=== PATIENT | male | born 1995 ===

== ENCOUNTER 2018-07-26 03:40 | Emergency (ER) | payer OTHER ==
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
[2018-07-26] MEDS ORDERED: IOPAMIDOL 76% 75 ML INFUS BTL 75 ML ONE (04:24)
[2018-07-26] MEDS ORDERED: NS(*) 0.9% 50 ML BAG 50 ML ONE (04:26)
[2018-07-26 05:23] LABS: PLATELET COUNT, AUTOMATED 283 K/uL (150-450)
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
--- NOTE | 2018-07-26 05:54 | RADIOLOGY IMAGING REPORT ---
FACILITY: [facility] PATIENT NAME: Joce Lerma : 1995 MR: [id number] V: [id number] EXAM DATE: ORDERING PHYSICIAN: JANET SWAIN TECHNOLOGIST: Location: [facility] [place] Patient: Joce Lerma : 1995 Visit/Account:[id number] Date of Sevice: 07/26/2018 CTA NECK/CAROTIDS W W/O CONTR HISTORY: Choked himself with a belt. Evaluate for vascular injury. COMPARISON: None. TECHNIQUE: Overlapping thin sections were obtained during a bolus of IV contrast from the aortic arch through the [place] of [place]. Reconstruction of the source data set includes multiplanar 2D in the s agittal and coronal planes, and 3D coronal thin slab MIP series. Digital Associate Media Director images have been stor ed on PACS. Stenosis of the internal carotid arteries are calculated using NASCET criteria. One of the following dose optimization techniques was utilized in the performance of this exam: Autom ated exposure control; adjustment of the mA and/or kV according to the patient's size; or use of an i terative reconstruction technique. Specific details can be referenced in the facility's radiology CT exam operational policy. CONTRAST: 75 mL of IV Isovue-370. FINDINGS: Aortic arch and great vessels: Normal. Right CCA / ICA / ECA: Normal. Left CCA / ICA / ECA: Normal. Vertebral arteries: Normal. The left vertebral artery is dominant. [place] of [place]: Normal. Soft tissues: Normal. Musculoskeletal: There is mild wedging of C6-T1 that may be physiologic or due to prior injury. Preve rtebral soft tissues are within normal limits. Spinal canal is normal in caliber. Upper chest: Clear. IMPRESSION: 1. Normal CTA of the neck. Report Dictated By: Sabina Holland at 07/26/2018 5:41 AM Report E-Signed By: Sabina Holland at 07/26/2018 5:49 AM WSN:[id number]
[2018-07-26 06:00] VITALS: BP 128/98
== END 2018-07-26 06:46 ==
LOC: ER 06:29
DX: T14.91XA Suicide attempt, initial encounter (principal); F10.120 Alcohol abuse with intoxication, uncomplicated; Y90.3 Blood alcohol level of 60-79 mg/100 ml
CPT/HCPCS: 70498; 80305; 80320; 80329; 81001; 83735; 84443; 85025; 99284; J7050; Q9967; 82040; 82247; 82310; 82374; 82435; 82565; 82947; 84075; 84132; 84155; 84295; 84450; 84460; 84520

== ENCOUNTER 2018-07-26 06:24 | Inpatient (IN) | payer OTHER ==
[~2018-07-26] VITALS: Ht 172.7 cm; Wt 70.3 kg
[2018-07-26 07:05] VITALS: BP 122/70
[2018-07-26] MEDS ORDERED: LORazepam 2 MG/ML VIAL IM PRN (08:05)
[2018-07-26] MEDS ORDERED: diphenhydrAMINE 25 MG CAP PO PRN (08:05)
[2018-07-26] MEDS ORDERED: diphenhydrAMINE 50 MG/ML VIAL IM PRN (08:05)
[2018-07-26] MEDS ORDERED: LORazepam 1 MG TAB PO PRN ×2 (08:05→12:10)
[2018-07-26] MEDS ORDERED: WATER STERILE 10 ML VIAL IM ONLY PRN (08:10)
[2018-07-26] MEDS ORDERED: OLANZapine 10 MG VIAL IM ONLY PRN (08:10)
[2018-07-26] MEDS ORDERED: OLANZapine 5 MG TAB PO PRN (08:10)
[2018-07-26] MEDS: MULTIVITAMINS TAB PO SCH (09:00)
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
[2018-07-26] MEDS ORDERED: NICOTINE CARTRIDGE 1 EA PO PRN (16:35)
[2018-07-26] MEDS: NICOTINE INH SYSTEM 10 MG/INH INH PRN ×2 (17:15→19:48)
[2018-07-27] MEDS: MULTIVITAMINS TAB PO SCH (08:38)
[2018-07-27 10:25] VITALS: BP 113/71
--- NOTE | 2018-07-27 12:06 | BHS Progress Note ---
[facility] - Subjective Progress Notes Subjective "I'm feeling better." Rates depression as low. Anxiety 2 or 3, anger 0, Guilt 6 or 7. He denies suicidal thoughts. Suicidal Ideation: None Homicidal Ideation: None [facility] - Objective Physical Exam Vital Signs Vital Signs 07/27/18 10:25 Temp 99.1 Pulse 65 Resp 16 B/P (MAP) 113/71 (85) Pulse Ox 94 O2 Delivery Room Air Muscle Strength and Tone: WNL Gait and Station: Steady Allergies Reviewed: Yes Mental Status Exam General Appearance: Casual, Well Groomed, Good Eye Contact, Cooperative, Polite, Good Interaction; No Tearful, No Psychomotor Agitation, No Psychomotor Retardation, No Bizarre Mannerisms, No Tics Speech: Clear, Spontaneous, Normal Rate, Normal Rhythm, Normal Volume, Normal Tone Mood: Dysthmic/Depressed Affect: Calm, Neutral, Anxious Thought Process: Organized, Logical, Goal Directed; No Loose Associations, No Flight of Ideas Thought Content: No Suicidal Ideation, No Homicidal Ideation, No Delusions, No Auditory Halllucinations, No Visual Hallucinations, No Thought Broadcasting, No Ideas of Reference, No Obsessions, No Compulsions Sensorium: Clear Cognition: Alert & Oriented-Person, Alert & Oriented-Place, Alert & Oriented- Time, Dldve-Dmwevrcu-Uxhbtufju Memory: Immediate, Recent, Remote (grosssly intact) Intelligence: Average Insight Judgment: Appropriate [facility] Assessment and Plan Agkp-di-Dina Encounter Date: Jul 27, 2018 Rqbh-[id number] Encounter Time: 08:30 [facility] Plan: Admit to Unit, Necessary Precautions, Individual/Group Therapy, Admin/Titrate Meds, Educate Patient Tobacco Medications: Not Appropriate Condition Multpiple Antipsychotics Used: No Problems: (1) Adjustment disorder Status: Chronic (2) Suicidal behavior with attempted self-injury Status: Resolved Problem Qualifiers (1) Adjustment disorder: Adjustment disorder type: with mixed anxiety and depressed mood Qualified Codes: F43.23 - Adjustment disorder with mixed anxiety and depressed mood WHITNEY HANDLEY NP Jul 27, 2018 12:06
[2018-07-27] MEDS: NICOTINE INH SYSTEM 10 MG/INH INH PRN ×3 (12:30→21:53)
[2018-07-27 19:25] VITALS: BP 118/65
[2018-07-28 05:55] VITALS: BP 109/65
[2018-07-28] MEDS: MULTIVITAMINS TAB PO SCH (08:30)
[2018-07-28 08:35] VITALS: BP 121/74
[2018-07-28] MEDS ORDERED: NIC10R INH (09:20)
[2018-07-28] MEDS ORDERED: MULT-859 PO (09:20)
--- NOTE | 2018-07-29 10:26 | SCHAAF DISCHARGE ---
DATE OF ADMISSION: July 26, 2018 DATE OF DISCHARGE: July 28, 2018 ATTENDING PHYSICIAN Santos Moore MD The patient was seen at approximately 0900 hours on 07/28/2018 for a note concerning this dictation. FINAL DIAGNOSES 1. Adjustment disorder with depressed mood. 2. Alcohol intoxication, resolved. 3. Social stressors, ongoing. 4. Patient having supportive relationship with mother. REASON FOR ADMISSION This is a very pleasant 22-year-old male who was admitted under an emergency detainment after making suicidal threats and the presence of alcohol intoxication. Patient had been arguing with his girlfriend. Patient also in somewhat of a conflict with his long-term girlfriend's father, who does not approve of their relationship. Please see history and physical for further details. Patient was admitted without incident, very calm, cooperative, polite, took an active role in his treatment on the unit. Patient adamantly denying any suicidal intent or any other psychiatric concerns in the absence of alcohol of intoxication. Again, patient took an active role in his treatment, was noted to be very pleasant and cooperative throughout his stay. Patient's mother was contacted, who lives in [place], and had no reservations about patient's discharge, and no parasuicidal behaviors were seen on the unit, and no clinically relevant alcohol withdrawal was seen on the unit as well, and patient was discharged to home. PHYSICAL EXAMINATION Please see emergency room note, notable for 22-year-old healthy appearing male in no acute medical distress. Vital signs at the time of admission: Temperature 98.5, pulse 80, respiratory rate 16, blood pressure 122/70 and pulse oximetry 93% on room air. Vital signs at the time of discharge from Behavioral Health Unit: Temperature 98.7, pulse low at 56, respiratory rate 16, blood pressure 121/74 and pulse oximetry 97% on room air. LABORATORY DATA TSH noted to be 4.17 in normal range. CBC was unremarkable. CMP notable for AST elevated at 160 and ALT elevated at 139. Urinalysis overall unremarkable as well, and toxicology screen negative for substances of abuse with a serum alcohol at 67 upon admission. MENTAL STATUS EXAMINATION GENERAL APPEARANCE, BEHAVIOR AND ATTITUDE: At time of discharge, this is a polite, cooperative 22-year-old male interacting very well with this provider and other treatment team staff. Patient making good eye contact, nontearful. No psychomotor agitation or retardation. No bizarre mannerisms or tics. SPEECH: Within normal limits. Regular rate, rhythm, volume and tone. MOOD: Described as good. AFFECT: Full and bright. THOUGHT PROCESSES: Logical and goal-directed. No loose associations or flight of ideas. THOUGHT CONTENT: Free of auditory or visual hallucinations, ideas of reference, thought broadcastings, delusions, obsessions, or compulsions, and patient adamantly denying any suicidal or homicidal ideation. SENSORIUM: Clear. COGNITION: Alert and oriented to person, place, time and situation. MEMORY: Immediate, recent and remote was estimated intact. INTELLIGENCE: Average, based on interview. INSIGHT AND JUDGMENT: Considered grossly intact in the absence of illicit substance or alcohol, and appropriate for outpatient treatment. RESULTS OF TESTING Imaging: None. Laboratory data: See above. CONSULTATIONS None. TREATMENT Patient received no medications on the Behavioral Health Unit. Patient took a very active role in individual and group therapy. HOSPITAL COURSE Patient remained pleasant and cooperative throughout his stay, again taking an active role in his treatment. Patient was notably not having any clinically relevant alcohol withdrawal. Patient's mood improved. Contact with mother was made. Relationship was estimated to be very intact and supportive. CONDITION OF PATIENT ON DISCHARGE Stable. Considered a minimal risk to himself or others, and appropriate for ongoing outpatient care. DISPOSITION The patient was discharged to home. He would follow up with a primary care provider in one month for elevated hepatic enzymes. Patient would abstain from alcohol and acetaminophen containing products and any other illicit substances. He was given the crisis line should symptoms return. Patient will take multivitamin with minerals daily and encouraged to stop smoking and use [id number] nicotine replacement. The risks, benefits and alternatives of the above discharge plan were discussed. Informed consent was given to proceed with the above discharge plan by this competent patient and patient's mother at time of discharge. MAN
== END 2018-07-28 14:11 | disposition home or self-care (01) | DRG 881 ==
LOC: BHS 06:24
PROVIDERS: ADMIT Registered Nurse Psychiatric/Mental Health, Adult; ATTEND Registered Nurse Psychiatric/Mental Health, Adult
DX: F43.21 Adjustment disorder with depressed mood (principal); R45.851 Suicidal ideations; F10.920 Alcohol use, unspecified with intoxication, uncomplicated; X83.8XXA Intentional self-harm by other specified means, initial encounter; Z63.0 Problems in relationship with spouse or partner; Z63.1 Problems in relationship with in-laws

== ENCOUNTER 2018-11-23 04:00 | Emergency (ER) | payer OTHER ==
[~2018-11-23 04:00] MED LIST: MULT-859 PO; NIC10R INH
--- NOTE | 2018-11-23 04:05 | ER Report ---
History and Physical Time Seen By MD: 04:05 Hx. of Stated Complaint: prison clearance HPI/ROS CHIEF COMPLAINT: emergency retirement, suicidal statements HISTORY OF PRESENT ILLNESS: This is a 22 year old male. He was arguing with his girlfriend, overheard by the [place] Police officers who were called to the domestic dispute. Verbal arguing, no physical violence. Police overheard him say that he was likely to kill himself or shoot himself at some point before he turns 26. He says that he feels that they misunderstood what he said in the middle of an argument. He has had a few drinks tonight. Denies drug use. Uses nicotine vaping. No medical problems. Past suicide attempt by attempted self strangulation with a belt, denied suicidal ideation at that time. Was in behavioral health at that time and then did counseling through the [facility] after that. Not currently in counseling or taking any medications. Denies suicidal ideation at this time. Allergies: Coded Allergies: Penicillins (Verified Allergy, Unknown, 11/23/18) Home Meds Reported Medications Nicotine (NICOTROL) 10 Mg/Inh Ctr, 10 MG INH PRN PRN for NICOTINE REPLACEMENT 07/28/18 Multivits,Ca,Minerals/Iron/Fa (THERA-M TABLET) 1 Each Tablet, 1 EACH PO DAILY 07/28/18 Reviewed Nurses Notes: Yes Hx Substance Use Disorder: No Hx Alcohol Use: Yes (1-2 time/month) Constitutional Vital Sign - Last 24 Hours 11/23/18 04:01 Temp 98.7 Pulse 98 Resp 12 B/P (MAP) 139/101 Pulse Ox 93 O2 Delivery Room Air Physical Exam General Appearance: Alert, no acute distress, cooperative. Eyes: Pupils equal and round, mild injection. ENT: Normal oral mucosa. Moist mucous membranes. Respiratory: Lungs are clear to auscultation. Cardiac: regular rate and rhythm, no murmurs, normal peripheral perfusion. Musculoskeletal: Extremities have full range of motion. Skin: No rashes or lesions. Neuro: Alert and oriented x3. No focal deficits. DIFFERENTIAL DIAGNOSIS: After history and physical exam differential diagnosis was considered for emergency retirement for suicidal statements. Medical Decision Making Data Points Result Diagram: 11/23/18 0459 11/23/18 0459 Laboratory Hematology Test 11/23/18 04:49 11/23/18 04:59 Urine Color Straw Urine Clarity Clear Urine pH 5.0 pH (4.8-9.5) Urine Specific [place] 1.009 Urine Protein Negative mg/dL (NEGATIVE) Urine Glucose (UA) Negative mg/dL (NEGATIVE) Urine Ketones Negative mg/dL (NEGATIVE) Urine Blood Negative (NEGATIVE) Urine Nitrite Negative (NEGATIVE) Urine Bilirubin Negative (NEGATIVE) Urine Urobilinogen Negative mg/dL (0.2-1.9) Urine Leukocyte Esterase Negative (NEGATIVE) Urine RBC 1 /HPF (0-2/HPF) Urine WBC <1 /HPF (0-5/HPF) Urine Squamous Epithelial Cells None /LPF (</=FEW) Urine Bacteria Negative /HPF (NONE-FEW) Urine Hyaline Casts Few /LPF (NONE-FEW) Urine Mucus None /HPF (NONE-FEW) Urine Opiates Screen Negative Urine Barbiturates Screen Negative Ur Tricyclic Antidepressants Screen Negative Urine Phencyclidine Screen Negative Urine Amphetamines Screen Negative Urine Benzodiazepines Screen Negative Urine Cocaine Screen Negative Urine Cannabinoids Screen Negative Red Blood Count 5.16 M/uL (4.00-5.60) Mean Corpuscular Volume 88.5 fL (80.0-96.0) Mean Corpuscular Hemoglobin 30.5 pg (26.0-33.0) Mean Corpuscular Hemoglobin Concent 34.5 g/dL (32.0-36.0) Red Cell Distribution Width 13.5 % (11.5-14.5) Mean Platelet Volume 7.1 fL (7.2-11.1) Neutrophils (%) (Auto) 58.1 % (39.4-72.5) Lymphocytes (%) (Auto) 33.2 % (17.6-49.6) Monocytes (%) (Auto) 6.9 % (4.1-12.4) Eosinophils (%) (Auto) 1.2 % (0.4-6.7) Basophils (%) (Auto) 0.6 % (0.3-1.4) Nucleated RBC Relative Count (auto) 0.1 /100WBC Neutrophils # (Auto) 3.4 K/uL (2.0-7.4) Lymphocytes # (Auto) 1.9 K/uL (1.3-3.6) Monocytes # (Auto) 0.4 K/uL (0.3-1.0) Eosinophils # (Auto) 0.1 K/uL (0.0-0.5) Basophils # (Auto) 0.0 K/uL (0.0-0.1) Nucleated RBC Absolute Count (auto) 0.01 K/uL Sodium Level 141 mmol/L (137-145) Potassium Level 4.0 mmol/L (3.5-5.0) Chloride Level 107 mmol/L (98-107) Carbon Dioxide Level 18 mmol/L (22-30) Blood Urea Nitrogen 14 mg/dl (9-21) Creatinine 0.90 mg/dl (0.66-1.25) Glomerular Filtration Rate Calc > 60.0 Random Glucose 96 mg/dl (75-110) Calcium Level 9.9 mg/dl (8.4-10.2) Magnesium Level 2.0 mg/dl (1.7-2.2) Total Bilirubin 0.2 mg/dl (0.2-1.3) Aspartate Amino Transf (AST/SGOT) 28 U/L (0-35) Alanine Aminotransferase (ALT/SGPT) 40 U/L (0-56) Alkaline Phosphatase 77 U/L (0-126) Total Protein 8.1 g/dl (6.3-8.2) Albumin 5.1 g/dl (3.5-5.0) Salicylates Level < 10 mg/L Salicylate Last Dose Date unk Acetaminophen Level < 10 ug/ml Serum Alcohol 136 mg/dl Chemistry Test 11/23/18 04:49 11/23/18 04:59 Urine Color Straw Urine Clarity Clear Urine pH 5.0 pH (4.8-9.5) Urine Specific [place] 1.009 Urine Protein Negative mg/dL (NEGATIVE) Urine Glucose (UA) Negative mg/dL (NEGATIVE) Urine Ketones Negative mg/dL (NEGATIVE) Urine Blood Negative (NEGATIVE) Urine Nitrite Negative (NEGATIVE) Urine Bilirubin Negative (NEGATIVE) Urine Urobilinogen Negative mg/dL (0.2-1.9) Urine Leukocyte Esterase Negative (NEGATIVE) Urine RBC 1 /HPF (0-2/HPF) Urine WBC <1 /HPF (0-5/HPF) Urine Squamous Epithelial Cells None /LPF (</=FEW) Urine Bacteria Negative /HPF (NONE-FEW) Urine Hyaline Casts Few /LPF (NONE-FEW) Urine Mucus None /HPF (NONE-FEW) Urine Opiates Screen Negative Urine Barbiturates Screen Negative Ur Tricyclic Antidepressants Screen Negative Urine Phencyclidine Screen Negative Urine Amphetamines Screen Negative Urine Benzodiazepines Screen Negative Urine Cocaine Screen Negative Urine Cannabinoids Screen Negative White Blood Count 5.8 k/uL (4.5-11.0) Red Blood Count 5.16 M/uL (4.00-5.60) Hemoglobin 15.8 g/dL (14.0-18.0) Hematocrit 45.7 % (42.0-52.0) Mean Corpuscular Volume 88.5 fL (80.0-96.0) Mean Corpuscular Hemoglobin 30.5 pg (26.0-33.0) Mean Corpuscular Hemoglobin Concent 34.5 g/dL (32.0-36.0) Red Cell Distribution Width 13.5 % (11.5-14.5) Platelet Count 324 K/uL (150-450) Mean Platelet Volume 7.1 fL (7.2-11.1) Neutrophils (%) (Auto) 58.1 % (39.4-72.5) Lymphocytes (%) (Auto) 33.2 % (17.6-49.6) Monocytes (%) (Auto) 6.9 % (4.1-12.4) Eosinophils (%) (Auto) 1.2 % (0.4-6.7) Basophils (%) (Auto) 0.6 % (0.3-1.4) Nucleated RBC Relative Count (auto) 0.1 /100WBC Neutrophils # (Auto) 3.4 K/uL (2.0-7.4) Lymphocytes # (Auto) 1.9 K/uL (1.3-3.6) Monocytes # (Auto) 0.4 K/uL (0.3-1.0) Eosinophils # (Auto) 0.1 K/uL (0.0-0.5) Basophils # (Auto) 0.0 K/uL (0.0-0.1) Nucleated RBC Absolute Count (auto) 0.01 K/uL Glomerular Filtration Rate Calc > 60.0 Calcium Level 9.9 mg/dl (8.4-10.2) Magnesium Level 2.0 mg/dl (1.7-2.2) Total Bilirubin 0.2 mg/dl (0.2-1.3) Aspartate Amino Transf (AST/SGOT) 28 U/L (0-35) Alanine Aminotransferase (ALT/SGPT) 40 U/L (0-56) Alkaline Phosphatase 77 U/L (0-126) Total Protein 8.1 g/dl (6.3-8.2) Albumin 5.1 g/dl (3.5-5.0) Salicylates Level < 10 mg/L Salicylate Last Dose Date unk Acetaminophen Level < 10 ug/ml Serum Alcohol 136 mg/dl Toxicology Test 11/23/18 04:49 11/23/18 04:59 Urine Opiates Screen Negative Urine Barbiturates Screen Negative Ur Tricyclic Antidepressants Screen Negative Urine Phencyclidine Screen Negative Urine Amphetamines Screen Negative Urine Benzodiazepines Screen Negative Urine Cocaine Screen Negative Urine Cannabinoids Screen Negative Salicylates Level < 10 mg/L Salicylate Last Dose Date unk Acetaminophen Level < 10 ug/ml Serum Alcohol 136 mg/dl Urinalysis Test 11/23/18 04:49 Urine Color Straw Urine Clarity Clear Urine pH 5.0 pH (4.8-9.5) Urine Specific [place] 1.009 Urine Protein Negative mg/dL (NEGATIVE) Urine Glucose (UA) Negative mg/dL (NEGATIVE) Urine Ketones Negative mg/dL (NEGATIVE) Urine Blood Negative (NEGATIVE) Urine Nitrite Negative (NEGATIVE) Urine Bilirubin Negative (NEGATIVE) Urine Urobilinogen Negative mg/dL (0.2-1.9) Urine Leukocyte Esterase Negative (NEGATIVE) Urine RBC 1 /HPF (0-2/HPF) Urine WBC <1 /HPF (0-5/HPF) Urine Squamous Epithelial Cells None /LPF (</=FEW) Urine Bacteria Negative /HPF (NONE-FEW) Urine Hyaline Casts Few /LPF (NONE-FEW) Urine Mucus None /HPF (NONE-FEW) ED Course/Re-evaluation ED Course Discussed the information available with the patient. He is denying suicidal ideation at this time, but is intoxicated. Based on prior history and report from the police, I felt he represented a moderate risk and decided to uphold the retirement. Behavioral health will do an evaluation and will likely need to hold him for at least 48 hours for further evaluation to decide what is needed in this case. Called and discussed the case with Eladia Cabral, who accepted the patient to behavioral health. Decision to Disposition Date: Nov 23, 2018 Decision to Disposition Time: 05:51 Depart Departure Latest Vital Signs Vital Signs Date Time Temp Pulse Resp B/P (MAP) Pulse Ox O2 Delivery O2 Flow Rate FiO2 11/23/18 04:01 98.7 98 12 139/101 93 Room Air Impression: Primary Impression: History of suicide attempt Additional Impression: Suicidal ideation Condition: Condition Unchanged Disposition: XFER TO [facility] Problem Qualifiers JANET SWAIN MD Nov 23, 2018 04:05
--- NOTE | 2018-11-23 04:38 | BHS - Psychiatric Evaluation ---
ER - Title 25 MHE Evaluation Title 25 Evaluation Patient Detained By: Law Enforcement Referral Source: Patient, [place] [employer] Date Patient Detained: Nov 23, 2018 Time Patient Detained: 04:08 Date Mcfp Expires: Nov 26, 2018 Time Mcfp Expires: 23:59 Legal Status: Police Hold: No Legal Status: Residence: Student Assessment Data Provided By: Patient, Law Enforcement HPI/ROS: This is a 22 year old male. Police responded to a domestic argument. He has been drinking. Police overheard suicidal statements which led to starting the emergency nursing home process. He denies being suicidal at this time. He does have a past history of suicide attempt with attempted self strangulation, and denied being suicidal even with obvious attempt at that time. He did stay in at that time and then did counseling through the [facility] after that. No current counseling or medications. Admit due to SI or Attempt: No Suicide Plan: No Plan Alcohol or Drugs Involved: Yes Is Patient Info Reliable: Yes Is Collateral Info Reliable: Yes Mental Status Exam General Appearance: Good Eye Contact, Cooperative, Polite, Good Interaction Speech: Clear, Spontaneous, Normal Rate, Normal Rhythm, Normal Volume, Normal Tone Mood: Euthymic Affect: Full and Appropriate, Calm Thought Process: Organized, Logical Thought Content: No Suicidal Ideation, No Homicidal Ideation Sensorium: Other (Is mildly intoxicated at this time.) Cognition: Alert & Oriented-Person, Alert & Oriented-Place, Alert & Oriented- Time, Meail-Eyttavqp-Gwmlnvrjf Insight Judgment: Intact, Appropriate Current Risk & History Current Dangerous Risk Assessm: Current Suicide Ideation Past Dangerous Risk Assessm: Other (See history above.) Previous Suicide Attempt: Past - High Lethality Previous Psychiatric Illness: Yes Previous Psychiatric Treatment: Yes Risk Assessment & Disposition Evaluated Risk Assessment: Given past history of suicide attempt and given the difference between what he is telling me and what officers heard, he represents a moderate risk and I would like to have behavioral health assess further. Impression: Primary Impression: History of suicide attempt Additional Impression: Suicidal ideation Meets Mental Illness Req.: Yes Meets Dangerousness Req.: Yes Emergency Mcfp to be: Upheld Decision Comment: Will hold here in the ER at this time, discuss with behavioral health and plan on admission for further evaluation based on above. Date of Decision: Nov 23, 2018 Time of Decision: 05:51 Patient is Medically Stable at: Yes Disposition: [facility] Problem Qualifiers JANET SWAIN MD Nov 23, 2018 04:38
[2018-11-23 05:15] LABS: PLATELET COUNT, AUTOMATED 324 K/uL (150-450)
[2018-11-23 07:45] VITALS: BP 127/78
== END 2018-11-23 08:30 ==
LOC: ER 04:05
DX: R45.851 Suicidal ideations (principal); Z91.5 Personal history of self-harm; F10.120 Alcohol abuse with intoxication, uncomplicated; Y90.6 Blood alcohol level of 120-199 mg/100 ml
CPT/HCPCS: 80305; 80320; 80329; 81001; 82040; 82247; 82310; 82374; 82435; 82565; 82947; 83735; 84075; 84132; 84155; 84295; 84443; 84450; 84460; 84520; 85025; 99284

== ENCOUNTER 2018-11-23 07:56 | Inpatient (IN) | payer OTHER ==
[~2018-11-23] VITALS: Ht 172.7 cm; Wt 77.1 kg
[2018-11-23 08:15] VITALS: BP 128/70
[2018-11-23] MEDS ORDERED: MAG HYD/AL HYD/SIMETH 30ML UDC PO PRN (08:25)
[2018-11-23] MEDS ORDERED: ACETAMINOPHEN 325 MG TAB PO PRN (08:25)
[2018-11-23] MEDS: MULTIVITAMINS PO SCH (08:41)
[2018-11-23] MEDS ORDERED: NICOTINE CARTRIDGE 1 EA PO PRN (11:40)
[2018-11-23] MEDS: NICOTINE INH SYSTEM 10 MG/INH INH PRN (13:34)
[2018-11-23 19:35] VITALS: BP 120/73
--- NOTE | 2018-11-23 20:13 | BHS - Psychiatric Evaluation ---
Title 25 Evaluation Hearing Report: 109 Date of Report: Nov 23, 2018 Examiner: Radha López M.S., L.P.C. Patient Detained By: Physician (ER physician, Dr. Segura upheld), Law Enforcement (LE intiated) 24hr Mental Health Eval By: ER physician, Dr. Segura Date Patient Detained: Nov 23, 2018 Time Patient Detained: 05:00 Date Long Term Expires: Nov 26, 2018 Time Long Term Expires: 05:00 Legal Status: Police Hold: No Legal Status: Relationship: Single Legal Status: Residence: Student Referral Source: Professional: LE Assessment Data Provided By: Patient, Law Enforcement (), Other Source ([facility] Professionals and patient's Electronic Medical Record (EMR)) Chief Complaint: Patient is brought to the ER by LE who were called because patient was overheard by concerned citizen patient in a loud argument expressing suicidal ideation. Patient denies he expressed suicidal ideation in this loud argument. HPI/ROS: from ER physician, Dr. Segura, "This is a 22 year old male. Police responded to a domestic argument. He has been drinking. Police overheard suicidal statements which led to starting the emergency mcfp process. He denies being suicidal at this time. He does have a past history of suicide attempt with attempted self strangulation, and denied being suicidal even with obvious attempt at that time. He did stay in at that time and then did counseling through the [facility] after that. No current counseling or medications. " Diagnosis: Adjustment Disorder with Depression, Anxiety and Suicide Attempt in July 2018 Risk Formulation: Risk is high, especially because patient was just detained three months ago because he soco to a similar level of concern with suicidal thoughts and behaviors. Recommendations of [facility] Team: The patient "evidences a substantial probability of physical harm to self as manifested by evidence of recent threats of/or attempts at suicide or serious bodily harm" as evidenced by: Recent suicidal ideation and behavior that has not resolved with outpatient support. Up to 10 days of continued stay at the safe and stabilizing environment of [facility] is the recommendation of the Team or a stipulated agreement that patient continue his outpatient therapeutic engagement that he recently let lapse. 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 Reliability of Collateral Info , very reliable Current Dangerous Risk Assess: Current Suicide Ideation (Denies current ideation, says he was suicidal in Deember when he was detained) Current Risk Summary: Risk is moderate, especially because patient was just detained three months ago because he soco to a similar level of concern with suicidal thoughts and behaviors. Past Dangerous Risk Assess: Suicide Ideation-last 6mo [facility] - Exam Physical Exam Vital Signs Vital Signs 11/23/18 11/23/18 08:15 19:35 Temp 99.5 Pulse 56 Resp 16 B/P (MAP) 120/73 (89) Pulse Ox 95 O2 Delivery Room Air Mental Status Exam General Appearance: Casual, Well Groomed, Good Eye Contact, Cooperative, Polite, Good Interaction Speech: Clear, Spontaneous, Normal Rate, Normal Volume, Normal Tone Mood: Dysthmic/Depressed Affect: Anxious Thought Process: Organized, Goal Directed (Wants to go back to school.) Memory: Immediate, Recent, Remote Intelligence: Average Insight Judgment: Poor (Especially because patient was intoxicated on both occasions that he was detained.) Sleep: Normal Care & Behavior on Unit Treatment Team Participation: Patient is cooperative and engages in treatment appropriately. Title 25 History Psychiatric History: Client denies any mental health history before a mcfp and hospitalization in July 2018. He never has taken any psychiatric medications. He denies a history of self-harm. From 3 months ago, written by Poppy Cabral, psychiatric professional at [facility], "This is a 22-year-old male admitted to the unit on an emergency mcfp after [employer] was called due to apparent suicide attempt. Patient is seen with the team. He is pleasant and cooperative. He acknowledges that he was drinking on the evening in question, that he drank more than he generally does and that he impulsively put a belt around his throat. He reports that he stopped this on his own accord. He now says he had no intention of killing himself. He reports that this was uncharacteristic for him and that he has never done anything like this before. He denies that he is having any suicidal thoughts currently. He denies that he has any history of suicide attempt in the past. As mentioned, he was intoxicated at the time. He becomes tearful as he continues to talk about current stressors which include it being the end of the semester and him finishing up his school work for the year. Finances are running low. There is a very poor relationship with the father of patient's girlfriend, who made derogatory racial statements about the patient, and this is very hurtful to the patient and one of his major stressors. He reports that here in the past two weeks, sleep has been generally pretty good." Family Psychiatric Hx: Denies any significant psychiatric family history. Social History: From 3 months ago, written by Poppy Cabral, psychiatric professional at [facility], "He was born and raised in [place], [place]. He was raised primarily by his mother. He never really had a relationship with his biologic father, who is in [place]. He has two younger siblings, a brother and a sister. He graduated from [employer] where he played basketball. He has always been a good student. He came to the [employer] on a [employer] scholarship. 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 He says that his grades are very well. He currently lives alone, and he has a dog. He does have a girlfriend whom he has been with for four years. He says that they generally do have a good relationship; however, her father does not approve of the relationship." Previous Detentions: Detained in July 2018 and hospitalized at [facility] on that occasion. Trauma/Abuse History: Denies a history of trauma. Drug & Alcohol Use: Uses alcohol occasionally. Drinks about 4-5 drinks at a time he says. He says he has tried marijuana, but says he has not used with regularity since high school. Uses tobacco. Current Living Situation: Lives alone with a dog. Employment Issues: Patient is a student at . Financial Issues: In July, reported problematic finances. Patient Strengths: Bright, motivated in school cares about his significant relationships. Relevant Medications: None RADHA CASTANON LPC Nov 23, 2018 19:52
--- NOTE | 2018-11-24 01:42 | HISTORY AND PHYSICAL ---
DATE OF ADMISSION: November 23, 2018 TIME OF ADMISSION: Approximately 0800. DATE/TIME SEEN Patient is seen on 11/23/2018 at 1110. ATTENDING PRACTITIONER Poppy Cabral, Psychiatric Nurse Practitioner PRESENTING PROBLEM/CHIEF COMPLAINT "The police say that I made suicidal statements, but I was not feeling suicidal at all." HISTORY OF PRESENT ILLNESS This is a 22-year-old male admitted to the unit on an emergency halfway after he was emergency detained by the [place] [employer]. What is reported is that patient was out with his friends last evening, including his girlfriend, drinking at the bars. He does report that he did get a little upset after running into a male friend. He [facility], and they were having a verbal argument. At some point, it is believed that a neighbor called the police, and police responded. According to the ER record, police overheard him make a suicidal statement. Patient is firmly denying any suicidal thoughts today, and he firmly denies that he made a suicidal statement early this morning. He denies owning a gun, and it is reported that he made a statement about shooting himself with a gun. Patient is polite and cooperative this morning during the interview. He is known to this caption writer from a previous admission in July 2018, at which time he was admitted following a suicide attempt while intoxicated. Patient does admit that he was drinking last evening. He reports drinking approximately four drinks. He reports that since his discharge from the unit on July 28, he followed up with a therapist at [facility] named Ashleigh; he is not sure of the last name. He says that he saw her for about four to five sessions. He feels that he had been doing much better. He feels that he has been doing well in school this semester, that his relationship with his mother has improved and that he speaks to her every day. He says that his relationship with his girlfriend has been good since his last admission. He denies problems with mood. He denies any major problems with sleep at night. He reports that anxiety level has been running maybe a 3 or 4. Today it is higher. Today he rates his anxiety level as an 8, as he is frustrated, as he does not believe that he needs to be in the hospital at this time. He denies any changes to medications. He is not taking any medications currently. He denies any other major changes since his admission in July, such as changes to his medical health. He has not started any supplements. MENTAL HEALTH HISTORY Patient was hospitalized here at [facility] July 26 through July 28, 2018, following a suicide attempt at which time he took a belt and put it around his neck, making suicidal statements. He was detained at that time, and he was discharged with recommendations to follow up with the student affairs dean, which he did, and with outpatient therapy. In terms of past mental health treatment, he did follow up with [facility] following his last admission. He reports seeing a therapist named Ashleigh. He is not sure of the last name. He saw her approximately four to five times. He denies any other previous mental health treatment. He denies any psychiatric medication history. Suicide Attempts: He did have the attempt in July 2018, at which time he put a belt around his throat, and he was hospitalized at [facility] at that time. FAMILY PSYCHIATRIC HISTORY He denies any history of mental illness, of suicide or addiction in his family. PAST MEDICAL HISTORY Positive for bilateral ACL reconstruction related to high school basketball injuries. SOCIAL HISTORY He was born and raised in [place], [place]. He was raised primarily by his mother. He never had a relationship with his biologic father, who lives in [place]. He has two younger siblings, a brother and a sister. He graduated from [employer], where he played basketball. He reports that he was always a good student. He is at the [employer], a senior studying secondary education. He reports that he is doing well in school this semester. He currently lives alone with his dog. He does have a girlfriend named Sara, whom he has been with for the past four years. He reports that they have been getting along very well. There is a stressor with his girlfriend's father, who has made derogatory statements to the patient about race. TRAUMA HISTORY Denied. LEGAL HISTORY He reports that he had an MIP his first year of college at age 19 or 20. SUBSTANCE ABUSE HISTORY He reports that he first drank alcohol at age 18. He reports that he drinks one to two times a month, typically drinking four to five drinks. He denies illicit substance use. Tobacco: He uses a vape pen. PHYSICAL EXAMINATION This is a well-developed, well-nourished 22-year-old male in no physical distress. Vital signs on admission: Temperature 98.8, blood pressure 128/70, pulse 78, respirations 16, oxygen saturation 95% on room air. Please see emergency room note for complete review of systems. LABORATORY DATA MPV at 7.1 and low. Chemistry: Carbon dioxide was at 18 and low, albumin 5.1 and high. TSH is pending for this visit. Toxicology screen: Serum alcohol level at 136, negative for salicylates and acetaminophen. His urine drug screen was negative. MENTAL STATUS EXAMINATION GENERAL APPEARANCE, BEHAVIOR AND ATTITUDE: This is a 22-year-old male who appears his stated age. Hygiene is within normal limits. Eye contact is good. He is cooperative and appropriate with clinicians. No abnormal psychomotor activity is noted. SPEECH: Clear, spontaneous, and of normal rate, rhythm, and volume. MOOD: Patient describes mood as frustrated. AFFECT: Mood-congruent. He is pleasant and cooperative. THOUGHT PROCESSES: Overall logical and goal directed. No loose associations or flight of ideas. THOUGHT CONTENT: He is firmly denying suicidal thoughts. He denies any homicidal thoughts. No delusions are elicited. He denies auditory, visual or other hallucinations. COGNITION: Patient is oriented to person, place, day, date, and situation. ESTIMATED INTELLIGENCE: Average, based upon interview. MEMORY: Immediate, recent, and remote estimated grossly intact. INSIGHT AND JUDGMENT: Fair. He acknowledges that he is here because it was reported that he made suicidal statements; however, he denies that he has been feeling suicidal. He did follow up with outpatient recommendations after his last visit. ASSESSMENT This is a 22-year-old male admitted to the unit under an emergency halfway due to the police being called to the scene for domestic violence call, and it was reported that police overheard him make suicidal statement at that time, and the police proceeded with an emergency halfway, which has been upheld. Today he is denying problems with depression; he is denying any suicidal thoughts; he denies that he made suicidal statements this morning. He does acknowledge that he had been drinking; however, he does not feel that he was so intoxicated that he does not recall making suicidal statement. He is cooperative and reports understanding of our Title 25 process. DIAGNOSES 1. Adjustment disorder with anxiety. 2. Rule out alcohol use disorder. 3. Tobacco use disorder. PLAN Patient is admitted to the unit. Necessary precautions are implemented. The patient will participate in individual, group and milieu psychoeducation and therapy. We will obtain collateral information. ESTIMATED LENGTH OF STAY Three to five days. MTDD
[2018-11-24 06:29] VITALS: BP 108/68
[2018-11-24] MEDS: MULTIVITAMINS PO SCH (08:30)
[2018-11-24] MEDS: NICOTINE INH SYSTEM 10 MG/INH INH PRN ×2 (12:34→20:33)
--- NOTE | 2018-11-24 16:15 | BHS Progress Note ---
[facility] - Subjective Progress Notes Subjective Pt seen in treatment team with his mother Sandi on speaker phone. Pt reports good mood and denies SI, says he is impatient to get out of hospital since he has a busy week at school, but he understands that we need to monitor him and then hope to get his ED converted to a directed outpatient commitment-- tentative DC tomorrow. We discussed the slippery slope of alcohol use disorders, and how he has had two episodes now where he was intoxicated and ended up on ED due to suicidal behaviors/statements. Pt's mother reports that he was home over [place] and she has not seem any sustained signs of depression or any behaviors or statement s that make her worry that he might be depressed. We do not see a need for antidepressant medication in this pt, but have emphasized importance of him moderating his drinking significantly. Will arrange outpatient follow up at [facility]. Suicidal Ideation: None Homicidal Ideation: None [facility] - Objective Physical Exam Vital Signs Vital Signs 11/24/18 06:29 Temp 98.5 Pulse 56 Resp 15 B/P (MAP) 108/68 (81) Pulse Ox 94 O2 Delivery Room Air Muscle Strength and Tone: WNL Gait and Station: Steady Allergies Reviewed: Yes Mental Status Exam General Appearance: Casual, Well Groomed, Good Eye Contact, Cooperative, Polite, Good Interaction Speech: Clear, Spontaneous, Normal Rate, Normal Volume, Normal Tone Mood: Dysthmic/Depressed Affect: Calm, Anxious Thought Process: Organized, Logical, Goal Directed Thought Content: No Suicidal Ideation, No Homicidal Ideation, No Delusions, No Auditory Halllucinations, No Visual Hallucinations, No Thought Broadcasting, No Ideas of Reference, No Obsessions, No Compulsions, No Other Sensorium: Clear Cognition: Alert & Oriented-Person, Alert & Oriented-Place, Alert & Oriented- Time, Xynjh-Gbbeochx-Xxnbbvurj Memory: Immediate, Recent, Remote Intelligence: Average Insight Judgment: Poor (Especially because patient was intoxicated on both occasions that he was detained.) [facility] Assessment and Plan [id number] Encounter Date: Nov 24, 2018 [id number] Encounter Time: 09:00 [facility] Plan: Admit to Unit, Necessary Precautions, Individual/Group Therapy, Admin/Titrate Meds, Educate Patient Tobacco Medications: Started Multpiple Antipsychotics Used: No Problems: (1) Adjustment disorder Status: Chronic (2) Suicidal ideation Status: Acute (3) Alcohol intoxication Assessment & Plan: R/O alcohol use disorder SILVA MELENDEZ MD Nov 24, 2018 16:15
[2018-11-25 06:17] VITALS: BP 109/77
[2018-11-25] MEDS: MULTIVITAMINS PO SCH (08:35)
[2018-11-25] MEDS ORDERED: NICOTROL CARTRIDGE PO (09:06)
--- NOTE | 2018-11-26 15:52 | BHS Discharge Summary ---
[facility] Discharge Summary Frjx-[id number] Encounter Date: Nov 26, 2018 [id number] Encounter Time: 10:00 Reason-Hosp/Final Diag (DSM-V): (1) Adjustment disorder Status: Chronic Hospital Course & Plan: PRESENTING PROBLEM/CHIEF COMPLAINT "The police say that I made suicidal statements, but I was not feeling suicidal at all." HISTORY OF PRESENT ILLNESS This is a 22-year-old male admitted to the unit on an emergency senior care after he was emergency detained by the [place] Police Department. What is reported is that patient was out with his friends last evening, including his girlfriend, drinking at the bars. He does report that he did get a little upset after running into a male friend. He [facility] his [place] [facility], and they were having a verbal argument. At some point, it is believed that a neighbor called the police, and police responded. According to the ER record, police overheard him make a suicidal statement. Patient is firmly denying any suicidal thoughts today, and he firmly denies that he made a suicidal statement early this morning. He denies owning a gun, and it is reported that he made a statement about shooting himself with a gun. HOSPITAL COURSE Pt was admitted to [facility] and maintained on suicide precautions. He was cooperative at all times and participated in groups and individual therapies. He did not show any signs of ongoing depression, and he denied SI throughout his stay. His Mother was contacted and she had not noticed any signs or symptoms of ongoing depression since his last stay here in July. We did not feel he needed an antidepressant. We did emphasize for him the negative sequelae of alcohol and diagnosed an alcohol use disorder. His contract attorney helped to create an outpatient commitment plan for him (which includes attending therapy appointments and refraining from all substance abuse), and he will follow up at [facility] for therapy under the outpatient commitment plan. (2) Suicidal ideation Status: Acute (3) Alcohol use disorder, moderate, dependence Mental Status Exam General Appearance: Casual, Well Groomed, Good Eye Contact, Cooperative, Polite, Good Interaction Speech: Clear, Spontaneous, Normal Rate, Normal Rhythm, Normal Volume, Normal Tone Mood: Euthymic Affect: Full and Appropriate, Calm Thought Process: Organized, Logical, Goal Directed Thought Content: No Suicidal Ideation, No Homicidal Ideation, No Delusions, No Auditory Halllucinations, No Visual Hallucinations, No Thought Broadcasting, No Ideas of Reference, No Obsessions, No Compulsions, No Other Sensorium: Clear Cognition: Alert & Oriented-Person, Alert & Oriented-Place, Alert & Oriented- Time, Mtwee-Jwmzrhzl-Pmjumwegw Memory: Immediate, Recent, Remote Intelligence: Average Insight Judgment: Poor, Fair Departure Condition: Improved Discharge to: Home Discharge Instructions Home Meds Reported Medications [Nicotrol Cartridge] No Conflict Check, 1 EA PO PRN PRN for NICOTINE REPLACEMENT 11/25/18 Nicotine (NICOTROL) 10 Mg/Inh Ctr, 10 MG INH PRN PRN for NICOTINE REPLACEMENT 07/28/18 Discontinued Reported Medications Multivits,Ca,Minerals/Iron/Fa (THERA-M TABLET) 1 Each Tablet, 1 EACH PO DAILY 07/28/18 Multpiple Antipsychotics Used: No Diet: Regular Activity: As Tolerated Special Instructions: Take medications as prescribed. Follow up with outpatient provider for medication management. Follow up with [facility] for outpatient therapy. Follow up with Cortney from [facility] Directed Outpatient Committment. Abstain from alcohol and all illicit substances. Call Crisis Line should symptoms return. SILVA MELENDEZ MD Nov 26, 2018 15:52
== END 2018-11-25 10:27 | disposition home or self-care (01) | DRG 882 ==
LOC: BHS 07:56
PROVIDERS: ADMIT Registered Nurse Psychiatric/Mental Health, Adult; ATTEND Registered Nurse Psychiatric/Mental Health, Adult
DX: F43.22 Adjustment disorder with anxiety (principal); R45.851 Suicidal ideations; F10.220 Alcohol dependence with intoxication, uncomplicated; Y90.6 Blood alcohol level of 120-199 mg/100 ml; Z91.5 Personal history of self-harm; Z73.3 Stress, not elsewhere classified; Z63.1 Problems in relationship with in-laws